=== PATIENT | female | born 1970 | race Caucasian/White ===

== ENCOUNTER → 2016-11-29 | Outpatient (CLI) | payer MEDICAID ==
--- NOTE | 2016-11-30 11:15 | MM ---
Reason for exam: screening (asymptomatic). Last mammogram was performed 1 year ago. History: Patient is nulliparous. Taking hormonal contraceptives for 19 years. Physical Findings: A clinical breast exam by your physician is recommended on an annual basis and results should be correlated with mammographic findings. MG 3D Screening Mammo W/Cad Bilateral CC and MLO view(s) were taken. Prior study comparison: November 22, 2015, bilateral MG 3d screening mammo w/cad. October 15, 2014, bilateral MG screening mammo w CAD. The breast tissue is almost entirely fat. There is no discrete abnormality. No significant changes when compared with prior studies. ASSESSMENT: Negative, BI-RAD 1 RECOMMENDATION: Routine screening mammogram of both breasts in 1 year.
== END | disposition home or self-care (01) ==
LOC: RADMAMWWP 09:57
PROVIDERS: ATTEND Internal Medicine
DX: Z12.31 Encounter for screening mammogram for malignant neoplasm of breast (principal)
CPT/HCPCS: 77063; G0202

== ENCOUNTER → 2016-12-13 | Outpatient (CLI) | payer MEDICAID ==
--- NOTE | 2016-12-14 16:42 | MR ---
EXAMINATION TYPE: MR cervical spine wo con DATE OF EXAM: 12/13/2016 8:33 PM COMPARISON: NONE HISTORY: Patient having pain in neck and left shoulder TECHNIQUE: Multiplanar, multisequence images of the cervical spine were acquired. C2-C3: No evidence for degenerative disc disease. No disc bulge/herniation or protrusion. No Canal stenosis. Foramina are patent bilaterally. C3-C4: Mild right-sided foraminal encroachment is present due to uncovertebral joint hypertrophy, fac et arthropathy, lateral extension endplate disc complex is noted causing minimal anterolateral mass e ffect on the thecal sac. No significant central stenosis or sizable disc herniation. C4-C5: Left posterior paracentral disc herniation is present, there is anterolateral mass effect on t he thecal sac, some encroachment on the left neural foramen, correlate for left C5 radiculopathy. No significant central stenosis. C5-C6: No evidence for degenerative disc disease. No disc bulge/herniation or protrusion. No Canal stenosis. Foramina are patent bilaterally. C6-C7: No evidence for degenerative disc disease. No disc bulge/herniation or protrusion. No Canal stenosis. Foramina are patent bilaterally. C7-T1: No evidence for degenerative disc disease. No disc bulge/herniation or protrusion. No Canal stenosis. Foramina are patent bilaterally. Cervical segments are intact. There is normal alignment. Cervical spinal cord is of normal signal. Craniovertebral junction relationships are within normal limits. There is spondylosis most notably at C4-5 and C5-6 with some associated loss of disc height and signal. IMPRESSION: Degenerative disc disease most significant at C4-5, C3-4, correlate for radiculopathy as described.
== END | disposition home or self-care (01) ==
LOC: RADMRIMAIN 19:58
PROVIDERS: ATTEND Physician Assistant
DX: M50.11 Cervical disc disorder with radiculopathy, high cervical region (principal); M75.22 Bicipital tendinitis, left shoulder; M75.52 Bursitis of left shoulder
CPT/HCPCS: 72141

== ENCOUNTER 2021-01-07 15:46 | Emergency (ER) | payer MEDICAID ==
[2021-01-07] MEDS ORDERED: DIPH,PERTUS(ACELL)TETVAC-LF 0.5 ML VIAL IM ONE (16:00)
[2021-01-07 16:04] VITALS: BP 128/77; PULSE 99; RESP 17; TEMP 97.2
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
[2021-01-07 16:18] LABS: Basophils % (A) 0 %; Eosinophils # (A) 0.2 k/uL (0-0.7); Eosinophils % (A) 2 %; HCT 40.8 % (34.0-46.0); HGB 14.1 gm/dL (11.4-16.0); Lymphocytes # (A) 1.6 k/uL (1.0-4.8); Lymphocytes % (A) 13 %; MCH 31.5 pg (25.0-35.0); MCHC 34.6 g/dL (31.0-37.0); MCV 91.1 fL (80.0-100.0); Mean Platelet Volume 6.9; Monocytes # (A) 0.5 k/uL (0-1.0); Monocytes % (A) 4 %; Neutrophils # (A) 9.6 k/uL (1.3-7.7); Neutrophils % (A) 80 %; Platelet Count 255 k/uL (150-450); RBC 4.48 m/uL (3.80-5.40); RDW 12.8 % (11.5-15.5)
[2021-01-07 16:28] LABS: ALT 30 U/L (4-34); AST 52 U/L (14-36); African American GFR (CKD) >90 (>60 ml/min/1.73 sqM); Albumin 3.4 g/dL (3.5-5.0); Alkaline Phosphatase 104 U/L (38-126); Anion Gap 8 mmol/L; Blood Urea Nitrogen 15 mg/dL (7-17); Calcium 8.9 mg/dL (8.4-10.2); Carbon Dioxide 24 mmol/L (22-30); Chloride 108 mmol/L (98-107); Creatine Kinase 164 U/L (30-135); Glucose 114 mg/dL (74-99); Non-African American GFR(CKD) 89 (>60 ml/min/1.73 sqM); Potassium 3.8 mmol/L (3.5-5.1); Sodium 140 mmol/L (137-145); Total Bilirubin 0.4 mg/dL (0.2-1.3)
[2021-01-07 16:29] LABS: Alcohol 172 mg/dL
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
[2021-01-07 16:39] LABS: INR 0.9 (<1.2); Partial Thromboplastin Time 20.9 sec (22.0-30.0); Prothrombin Time 9.8 sec (9.0-12.0)
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
[2021-01-07 19:09] LABS: Appearance,Urine Clear (Clear); Bilirubin,Urine Negative (Negative); Blood,Urine Negative (Negative); Color,Urine Light Yellow; Glucose,Urine (UA) Negative (Negative); Ketones,Urine Negative (Negative); Leukocyte Esterase,Urine Negative (Negative); Nitrite,Urine Negative (Negative); Protein,Urine Negative (Negative); Specific Gravity,Urine 1.027 (1.001-1.035); Urobilinogen,Urine <2.0 mg/dL (<2.0)
[2021-01-07 19:21] LABS: Amphetamine Screen,Urine Not Detected (NotDetected); Barbiturate Screen,Urine Not Detected (NotDetected); Benzodiazepines Screen,Urine Not Detected (NotDetected); Cocaine Screen,Urine Detected (NotDetected); Methadone Screen, Urine Not Detected (NotDetected); Opiate Screen,Urine Not Detected (NotDetected); Oxycodone Screen, Urine Not Detected (NotDetected); Phencyclidine Screen,Urine Not Detected (NotDetected); Tricyclic Antidepressant,Urine Not Detected (NotDetected); Urn Cannabinoid Scrn Not Detected (NotDetected)
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
== END 2021-01-07 19:33 | disposition home or self-care (01) ==
LOC: EC 15:46
DX: S01.01XA Laceration without foreign body of scalp, initial encounter (principal); S30.1XXA Contusion of abdominal wall, initial encounter; S60.511A Abrasion of right hand, initial encounter; S40.212A Abrasion of left shoulder, initial encounter; S40.211A Abrasion of right shoulder, initial encounter; S80.812A Abrasion, left lower leg, initial encounter; S80.811A Abrasion, right lower leg, initial encounter; Z88.1 Allergy status to other antibiotic agents; Z23 Encounter for immunization
CPT/HCPCS: 36415; 93005; 86900; 86901; 80053; 82550; 84484; 85025; 85610; 85730; 86850; 81003; 80306; 80320; 72170; 73130; 71045; 72125; 70450; 71260; 74177; 90715; 99285; 12002; 90471; Q9967

== ENCOUNTER → 2022-04-30 | Outpatient (CLI) | payer OTHER ==
--- NOTE | 2022-05-01 06:58 | MR ---
EXAMINATION TYPE: MR knee RT wo con DATE OF EXAM: 04/30/2022 COMPARISON: Outside right knee x-ray April 03, 2022 HISTORY: Right knee inner pain and swelling for 3 months. TECHNIQUE: Multiplanar, multisequence imaging of the right knee is performed without IV contrast. FINDINGS: MEDIAL MENISCUS: Anterior and posterior horns are intact without tear. LATERAL MENISCUS: Diminutive anterior horn with abnormal increased signal. CRUCIATE LIGAMENTS: The anterior and posterior cruciate ligaments are intact and unremarkable. COLLATERAL LIGAMENTS: The medial collateral ligament and lateral collateral ligament complex are inta ct. Marked fluid signal surrounds lateral collateral ligament complex and to lesser degree the medial collateral ligament. EXTENSOR MECHANISM: Visualized quadriceps and patellar tendons are intact. EFFUSION: Moderate size suprapatellar joint effusion. POPLITEAL CYST: Moderate size multiseptated popliteal/bailey cyst with ill-defined fluid extending in feriorly. TRICOMPARTMENT SPACES: Moderate narrowing and mild spurring patellofemoral compartment. Mild to moder ate narrowing and spurring lateral greater than medial tibiofemoral compartments CARTILAGE: Chondromalacia patella with cartilaginous loss inferior posterior patellar pole. More prom inent cartilaginous loss lateral tibial femoral compartment. BONE MARROW SIGNAL: Heterogeneous increased T2 signal distal lateral femoral condyle with more focal diminished T1 signal at the articular surface. OTHER: No additional significant abnormality is appreciated. IMPRESSION: 1. Fairly moderate tricompartment degenerative changes greatest lateral tibial femoral compartment as detailed above with associated osseous edema through the distal lateral femoral condyle. 2. Full-thickness tear anterior horn lateral meniscus. 3. Mild to moderate LCL complex brain injury. Mild MCL sprain injury. 4. Moderate size multiseptated leaking Bailey's cyst. 5. Moderate-size suprapatellar joint effusion.
== END | disposition home or self-care (01) ==
LOC: RADMRIMAIN 16:39
PROVIDERS: ATTEND Orthopaedic Surgery
DX: S83.411A Sprain of medial collateral ligament of right knee, initial encounter (principal); S83.421A Sprain of lateral collateral ligament of right knee, initial encounter; S83.281A Other tear of lateral meniscus, current injury, right knee, initial encounter; M17.11 Unilateral primary osteoarthritis, right knee; M71.21 Synovial cyst of popliteal space [Baker], right knee

== ENCOUNTER → 2022-05-31 | Outpatient (CLI) | payer OTHER ==
[2022-05-31 17:27] LABS: ALT 13 U/L (8-44); AST 17 U/L (13-35); Alkaline Phosphatase 124 U/L (41-126); BUN/Creat Ratio 22.67 Ratio (12.00-20.00); Blood Urea Nitrogen 20.4 mg/dL (9.0-27.0); Calcium 9.3 mg/dL (8.7-10.3); Carbon Dioxide 24.3 mmol/L (20.0-27.5); Chloride 104 mmol/L (96-109); Chol/HDL Ratio 3.15 Ratio; Globulin 2.5 g/dL (1.6-3.3); Glucose 78 mg/dL (70-110); LDL Cholesterol,Calculated 119.5 mg/dL (0.0-131.0); Non-African American GFR(CKD) 72.5 (60.0-200.0); Potassium 4.4 mmol/L (3.5-5.5); Sodium 140 mmol/L (135-145); Total Protein 6.5 g/dL (6.2-8.2)
== END | disposition home or self-care (01) ==
LOC: LABWHC1 09:12
PROVIDERS: ATTEND Orthopaedic Surgery
DX: Z01.812 Encounter for preprocedural laboratory examination (principal); M23.91 Unspecified internal derangement of right knee
CPT/HCPCS: 36415; 80053; 80061

== ENCOUNTER → 2022-05-31 | Outpatient (CLI) | payer OTHER ==
[2022-05-31 14:38] LABS: Basophils # (A) 0.04 X 10*3/uL (0.00-0.10); Basophils % (A) 0.5 %; Eosinophils # (A) 0.16 X 10*3/uL (0.04-0.35); Eosinophils % (A) 2.2 %; HCT 43.7 % (37.2-46.3); Immature Grans, Automated 0.1 %; Lymphocytes # (A) 2.01 X 10*3/uL (0.90-5.00); Lymphocytes % (A) 27.1 %; MCH 30.3 pg (27.0-32.0); MCV 94.6 fL (80.0-97.0); Monocytes % (A) 9.4 %; NRBC Per 100 WBC 0 /100 WBCS (0.0-0.0); Neutrophils % (A) 60.7 %; Platelet Count 287 X 10*3/uL (140-440); RBC 4.62 X 10*6/uL (4.10-5.20); RDW 12.7 % (11.5-14.5); WBC 7.42 X 10*3/uL (4.50-10.00)
[2022-05-31 17:14] LABS: Anion Gap 12.5 mmol/L (10.00-18.00); Carbon Dioxide 24.3 mmol/L (20.0-27.5); Potassium 4.4 mmol/L (3.5-5.5)
== END | disposition home or self-care (01) ==
LOC: LABWHC1 09:14
PROVIDERS: ATTEND Internal Medicine
DX: Z00.00 Encounter for general adult medical examination without abnormal findings (principal); Z13.220 Encounter for screening for lipoid disorders; I44.7 Left bundle-branch block, unspecified; F41.1 Generalized anxiety disorder; K21.9 Gastro-esophageal reflux disease without esophagitis; R94.31 Abnormal electrocardiogram [ECG] [EKG]; R00.1 Bradycardia, unspecified
CPT/HCPCS: 36415; 80051; 85025; 93005

== ENCOUNTER 2022-06-07 12:26 | Day surgery (SDC) | payer OTHER ==
--- NOTE | 2022-06-07 02:24 | HP ---
HISTORY AND PHYSICAL DATE OF SURGERY: 06/07/2022 HISTORY OF PRESENT ILLNESS: Isa Arevalo is a 52-year-old patient, seen with progressive right knee pain. We discussed options for treatment. She elected to proceed with right knee arthroscopy. Consent was obtained. PAST MEDICAL HISTORY: Gastroesophageal reflux disease. PAST SURGICAL HISTORY: Carpal tunnel surgery, left knee arthroscopy. DAILY MEDICATION: Naprosyn. ALLERGIES: Doxycycline. SOCIAL HISTORY: She denies tobacco use. PHYSICAL EVALUATION OF THE RIGHT KNEE: Range of motion is 0 to 120. Mild effusion. Tenderness along the medial and lateral joint lines. Positive medial Nacho's and positive lateral Nacho's. Ligament is stable. Hip rotation without pain. Distal neurovascular exam intact. RADIOGRAPHS: Radiographs of the right knee revealed moderate osteoarthritic changes. The right knee MRI revealed lateral meniscal tear, Bailey cyst, and effusion. IMPRESSION: 1. Internal derangement of the right knee with lateral meniscal tear. 2. Gastroesophageal reflux disease. PLAN: Right knee arthroscopy with partial lateral meniscectomy and debridement. MMODL / IJN: [id number] /
[~2022-06-07 12:26] MED LIST: DEXAMETHASONE SOD PHOSPHATE 4 MG/ML 1 ML VIAL IV ONE; LACTATED RINGERS 1,000 ML IV SCH; ONDANSETRON 4 MG/2 ML VIAL IVP ONE
[2022-06-07 13:05] VITALS: RESP 16
[2022-06-07] MEDS ORDERED: LIDOCAINE 1% (10MG/ML) FOR IV START INTRADERMA ONE (13:07)
[2022-06-07] MEDS ORDERED: ONDANSETRON 4 MG/2 ML VIAL IVP ONE (13:07)
[2022-06-07] MEDS ORDERED: DEXAMETHASONE SOD PHOSPHATE 4 MG/ML 1 ML VIAL IVP ONE (13:08)
[2022-06-07] MEDS ORDERED: ONDANSETRON 4 MG/2 ML VIAL ONE (13:09)
[2022-06-07] MEDS ORDERED: LIDOCAINE 2% INJ 20 MG/ML (2 ML VIAL) ONE (14:07)
[2022-06-07] MEDS ORDERED: PROPOFOL 10 MG/ML 20 ML VIAL IV ONE (14:07)
[2022-06-07] MEDS ORDERED: SUCCINYLCHOLINE CHLORIDE 200 MG/10 ML VIAL IV ONE (14:07)
[2022-06-07] MEDS ORDERED: fentaNYL (PF) 50 MCG/ML 2 ML AMP ONE (14:07)
[2022-06-07] MEDS ORDERED: MIDAZOLAM 2 MG/2 ML VIAL ONE (14:07)
[2022-06-07] MEDS ORDERED: BUPIVACAINE (PF) 0.25% 30 ML VIAL SQ ONE ×2 (14:08→14:45)
[2022-06-07] MEDS ORDERED: HYDROmorphone 0.5 MG/0.5 ML SYRINGE IVP ONE ×3 (14:40→15:22)
[2022-06-07] MEDS ORDERED: LACTATED RINGERS 1,000 ML IV ONE (14:54)
--- NOTE | 2022-06-07 15:07 | P.OP ---
Date of Procedure: 06/07/22 Preoperative Diagnosis: Internal derangement right knee Postoperative Diagnosis: 1. Tear medial and lateral meniscus right knee 2. Grade 4 chondromalacia medial femoral condyle right knee 3. Grade 3 chondromalacia lateral femoral condyle right knee 4. Reactive synovitis medial, lateral and suprapatellar compartments right knee Procedure(s) Performed: 1. Arthroscopic partial medial and lateral meniscectomy right knee 2. Arthroscopic microfracture medial femoral condyle right knee 3. Arthroscopic partial synovectomy medial, lateral and suprapatellar compartments right knee Anesthesia: ADALGISAA, local Surgeon: Shar George Estimated Blood Loss (ml): 7 Pathology: none sent Condition: stable Disposition: PACU Indications for Procedure: 52-year-old patient seen with progressive right knee pain. After treatment options were discussed, she elected to proceed with arthroscopy. Operative Findings: see description of procedure Description of Procedure: Patient was taken to the operative suite. Patient underwent a general anesthetic by the department of anesthesia. Patient was given preoperative antibiotics. The right lower extremity was placed in a well-padded arthroscopic leg hernandez. The right leg was prepped and draped in the normal sterile orthopedic fashion. A lateral parapatellar and suprapatellar incision was made. Trochars were inserted. Arthroscopy was initiated. Suprapatellar pouch reveal ed diffuse thick reactive synovitis. The patellofemoral joint appeared to articulate congruently. There as grade 1 chondromalacia of the patella. The scope was guided into the medial gutter. No loose bodies or plica were identified. The scope was then guided into the medial compartment. A medial parapatellar incision was made. Trocar inserted followed by probe. There was a radial tear posterior horn medial meniscus. There were grade 3/4 chondromalacia changes medial femoral condyle with some large osteochondral flap tears. There was thick reactive synovitis anteriorly. I performed a partial medial meniscectomy. I performed a chondroplasty medial femoral condyle followed by partial synovectomy. There was an area of grade 4 chondromalacia with exposed bone medial femoral condyle once I completed the chondroplasty. I introduced a microfracture awl and performed a microfracture to that area of exposed bone penetrating the bone with resultant bleeding at the microfracture site. The residual meniscus was probed and was found to be stable. The residual osteochondral surface was stable. There was good decompression of the synovitis. Scope and probe were then guided into the intercondylar notch. There was some partial tearing of the anterior cruciate ligament. I debrided those torn fibers out. The residual anterior cruciate ligament was diminutive but stable. The PCL appeared stable. The scope and probe were then guided into lateral compartment. There was a complex lateral meniscal tear involving the anterior horn, mid body and posterior horn. There were grade 3 chondral malacia changes lateral femoral condyle with some osteochondral flap tears. There was some thick reactive synovitis anteriorly. I performed a partial lateral meniscectomy getting down to stable meniscal tissue. I performed a chondroplasty lateral femoral condyle and a partial synovectomy. The residual meniscus was stable. The residual osteochondral surface was stable again noted grade 3 chondromalacia. There was good decompression of the reactive synovitis anteriorly. The scope was in guided back into the suprapatellar compartment. I introduced a motorized shaver into the suprapatellar compartment. I debrided some piecemeal fragments of meniscus that I encountered. I performed a partial synovectomy. Shaver was now removed. There was good decompression of synovitis . I took one more look around the entire knee, no residual debris. Instruments were now removed from the joint. The joint was infiltrated with .25% Marcaine. Steri-Strips were applied to the portal sites. Sterile dressings were applied. The patient was placed into a DYANA hose. No tourniquet was utilized. The patient was awakened, transferred to a bed and taken to recovery stable satisfactory condition.
[2022-06-07 15:15] VITALS: TEMP 98
[2022-06-07] MEDS ORDERED: KETOROLAC 15 MG/ML 1 ML VIAL IVP ONE (15:24)
[2022-06-07 16:27] VITALS: PULSE 64
[2022-06-07 17:11] VITALS: BP 124/86
== END 2022-06-07 16:51 | disposition home or self-care (01) ==
LOC: OR 12:26
PROVIDERS: ATTEND Orthopaedic Surgery
DX: S83.241A Other tear of medial meniscus, current injury, right knee, initial encounter (principal); S83.271A Complex tear of lateral meniscus, current injury, right knee, initial encounter; M94.261 Chondromalacia, right knee; M65.9 Synovitis and tenosynovitis, unspecified; M23.91 Unspecified internal derangement of right knee; F41.9 Anxiety disorder, unspecified; K21.9 Gastro-esophageal reflux disease without esophagitis; Z88.1 Allergy status to other antibiotic agents; Z79.1 Long term (current) use of non-steroidal anti-inflammatories (NSAID); X58.XXXA Exposure to other specified factors, initial encounter
CPT/HCPCS: 29880; 29879; J2250; J0330; J1100; J0690; J2405; J3010; J1885; J2704; J1170; J2001

== ENCOUNTER → 2022-06-09 | Outpatient (CLI) | payer OTHER ==
--- NOTE | 2022-06-09 11:10 | MR ---
EXAMINATION TYPE: MR brain wo/w con DATE OF EXAM: 06/09/2022 10:33 AM COMPARISON: NONE HISTORY: MILD COGNITIVE IMPAIRMENT, HEAD TRAUMA, MEMORY LOSS, LOSS OF SMELL CONTRAST: Patient received 12.5 mL intravenous Gadavist gadolinium contrast. Multiplanar and multispin-echo imaging of the brain was performed . Pre and post contrast enhanced i mages are obtained. The ventricles, basal cisterns and sulci overlying the cerebral convexities are mildly enlarged. There is evidence of mild periventricular white matter ischemic demyelination. Remote deep white matter insults are also noted. No acute edema is seen on diffusion weighted imaging. There is no evidence for midline shift or mass effect. Acute intracranial hemorrhage or extra-axial collection is not evident. No enhancing lesions are seen. The paranasal sinuses and mastoid air cells are well-aerated. IMPRESSION: Age-related atrophic and chronic small vessel ischemic change. No acute intracranial process at this time. No enhancing lesions are seen.
== END | disposition home or self-care (01) ==
LOC: RADMRIMAIN 09:49
PROVIDERS: ATTEND Internal Medicine
DX: S09.90XA Unspecified injury of head, initial encounter (principal); G31.9 Degenerative disease of nervous system, unspecified; I67.82 Cerebral ischemia
CPT/HCPCS: 70553; A9585